=== PATIENT | female | born 1960 | race Caucasian/White ===

== ENCOUNTER 2018-07-05 10:23 | Emergency (ER) | payer BC ==
[2018-07-05 11:03] VITALS: BP 145/77
--- NOTE | 2018-07-05 11:40 | UC ---
Lower Extremity/Ankle HPI - HPI Summary HPI Summary: 57 yo patient with history of HTN who states she jumped down from standing on her countertop last night, injuring her left foot/ankle. she has pain to the top of of her left foot but was able to bear weight after incident, and is able to walk now. Denies any swelling, has not taken any pain medication as she says - History of Current Complaint Chief Complaint: UCLowerExtremity Stated Complaint: ANKLE INJURY Time Seen by Provider: 07/05/18 10:27 Hx Obtained From: Patient ?: No Onset/Duration: Sudden Onset, Lasting Hours Severity Initially: Moderate Severity Currently: Moderate Pain Intensity: 5 Aggravating Factor(s): Standing, Ambulation Alleviating Factor(s): Rest Able to Bear Weight: Yes - Risk Factors Gout Risk Factors: Age Over 40, Hypertension DVT Risk Factors: Negative Septic Arthritis Risk Factor: Negative - Allergies/Home Medications Allergies/Adverse Reactions: Allergies Allergy/AdvReac Type Severity Reaction Status Date / Time ciprofloxacin [From Cipro] AdvReac Intermediate jittery Verified 07/05/18 11:01 levofloxacin [From Levaquin] AdvReac Nausea And Verified 07/05/18 11:01 Vomiting nitrofurantoin AdvReac Nausea And Verified 07/05/18 11:01 Vomiting Home Medications: Home Medications Lisinopril TAB* [Prinivil TAB*] 10 mg PO DAILY 07/05/18 [History Confirmed 07/05] PMH/Surg Hx/FS Hx/Imm Hx Cardiovascular History: Hypertension - Surgical History Surgical History: Yes Surgery Procedure, Year, and Place: , 1992, [facility] - Family History Known Family History: Positive: None - Social History Alcohol Use: Weekly Alcohol Amount: 2 PER WEEK Substance Use Type: None Smoking Status (MU): Former Smoker Type: Cigarettes Amount Used/How Often: 1/2 PACK A WEEK Have You Smoked in the Last Year: No When Did the Patient Quit Smoking/Using Tobacco: 1994 Review of Systems Constitutional: Negative Musculoskeletal: Arthralgia, Myalgia All Other Systems Reviewed And Are Negative: Yes Physical Exam - Summary Physical Exam Summary: Left foot: FROM, capillary refill brisk, pedal pulses present, no edema or soft tissue swelling, no bruising. Hemet ankle rule negative, non tender on navicular, 5th metatarsal or posterior malleolar area. Triage Information Reviewed: Yes Appearance: Well-Appearing, No Pain Distress, Well-Nourished Vital Signs: Initial Vital Signs Temp 97.6 F 07/05/18 10:57 Pulse 57 07/05/18 10:57 Resp 14 07/05/18 10:57 BP 145/77 07/05/18 10:57 Pulse Ox 99 07/05/18 10:57 Vital Signs Reviewed: Yes Eyes: Positive: Conjunctiva Clear ENT: Positive: Hearing grossly normal Neck: Positive: Supple, Nontender, No Lymphadenopathy Respiratory: Positive: Chest non-tender, Lungs clear, Normal breath sounds, No respiratory distress Cardiovascular: Positive: RRR, No Murmur, Pulses Normal, Brisk Capillary Refill Abdomen Description: Positive: Nontender Musculoskeletal: Positive: Strength Intact, ROM Intact, No Edema Lower Extremity Course/Dx - Course Course Of Treatment: patient is able to bear weight and is negative Hemet, with an ankle sprain, instructed about RICE and ROM exercises for ankle, she states she will take NSAIDS over the counter. F/u with primary care in a week - Differential Dx/Diagnosis Provider Diagnoses: Left ankle sprain Discharge - Sign-Out/Discharge Documenting (check all that apply): Patient Departure All imaging exams completed and their final reports reviewed: No Studies - Discharge Plan Condition: Stable Disposition: HOME Patient Education Materials: Ankle Sprain (ED), R.I.C.E. Treatment (ED) Referrals: Sai Isbell MD [Primary Care Provider] - - Billing Disposition and Condition Condition: STABLE Disposition: Home
== END 2018-07-05 11:39 | disposition home or self-care (01) ==
LOC: UCEAST 10:23
DX: S93.402A Sprain of unspecified ligament of left ankle, initial encounter (principal); W17.89XA Other fall from one level to another, initial encounter; Y93.9 Activity, unspecified; Y92.9 Unspecified place or not applicable; I10 Essential (primary) hypertension; Z88.1 Allergy status to other antibiotic agents; Z87.891 Personal history of nicotine dependence
CPT/HCPCS: 99212; G0463

== ENCOUNTER 2019-12-12 09:53 | Emergency (ER) | payer BC ==
[2019-12-12 10:15] VITALS: BP 134/76
--- NOTE | 2019-12-12 10:44 | UC ---
Complaint Female HPI - HPI Summary HPI Summary: 59 year old female with no PMH presents with hematuria, urination frequency/ urgency x 3-4 days. First thought was yeast infection, treated for this without improvement. Last night had bloody urine. Continues to be able to urinate. No recent UTi. no fever, chills. + lower abdominal pain, no flank pain. - History Of Current Complaint Chief Complaint: UCGU Stated Complaint: UTI Time Seen by Provider: 12/12/19 10:26 Hx Obtained From: Patient ?: No Onset/Duration: Sudden Onset, Lasting Days - 3-4, Still Present, Worse Since - last night Timing: Constant Severity Initially: Mild Severity Currently: Mild Pain Intensity: 1 Pain Scale Used: 0-10 Numeric Character: Dull, Burning Aggravating Factor(s): Urination Associated Signs And Symptoms: Negative: Fever, Back Pain, Vaginal Bleeding/ Discharge, Vaginal Discharge, Nausea, Genital Swelling, Genital Blisters - Allergies/Home Medications Allergies/Adverse Reactions: Allergies Allergy/AdvReac Type Severity Reaction Status Date / Time ciprofloxacin [From Cipro] AdvReac Intermediate jittery Verified 12/12/19 10:11 levofloxacin [From Levaquin] AdvReac Nausea And Verified 12/12/19 10:11 Vomiting nitrofurantoin AdvReac Nausea And Verified 12/12/19 10:11 Vomiting Home Medications: Home Medications Lisinopril TAB* [Prinivil TAB 10 MG*] 10 mg PO DAILY 07/05/18 [History Confirmed 12/12/19] Cephalexin CAP* [Keflex CAP*] 500 mg PO QID #20 cap 12/12/19 [Rx] PMH/Surg Hx/FS Hx/Imm Hx Previously Healthy: Yes - Surgical History Surgical History: Yes Surgery Procedure, Year, and Place: , 1992, [facility] - Family History Known Family History: Positive: None - Social History Occupation: Employed Full-time Alcohol Use: Occasionally Alcohol Amount: 2 PER WEEK Substance Use Type: None Smoking Status (MU): Former Smoker Type: Cigarettes Amount Used/How Often: 1/2 PACK A WEEK Have You Smoked in the Last Year: No When Did the Patient Quit Smoking/Using Tobacco: 1994 Review of Systems All Other Systems Reviewed And Are Negative: Yes Constitutional: Negative: Fever, Chills, Fatigue Respiratory: Positive: Negative Genitourinary: Positive: Dysuria, Hematuria, Frequency, Urgency. Negative: Vaginal/Penile Burning, Vaginal/Penile Itching, Vaginal/Penile Discharge, Vaginal/Penile Pain, Vaginal/Penile Tenderness, Ulceration/Lesion, Abnormal Bleeding Motor: Positive: Negative Physical Exam Triage Information Reviewed: Yes Appearance: Well-Appearing, No Pain Distress, Well-Nourished Vital Signs: Initial Vital Signs Temp 99 F 12/12/19 10:12 Pulse 58 12/12/19 10:12 Resp 18 12/12/19 10:12 BP 134/76 12/12/19 10:12 Pulse Ox 100 12/12/19 10:12 Vital Signs Reviewed: Yes Eyes: Positive: Conjunctiva Clear ENT: Positive: Hearing grossly normal Cardiovascular: Positive: RRR, No Murmur Abdomen Description: Positive: Other: - TTP over suprapubic region, no radiating. Negative: CVA Tenderness (R), CVA Tenderness (L), Distended, Guarding, Hepatomegaly, McBurney's Point Tenderness, Peritoneal Signs Neurological: Positive: Alert Psychological Exam: Normal Skin Exam: Normal Complaint Female Dx - Course Course Of Treatment: - Increase fluid intake - Tylenol as needed for pain - Go to ER with fever, flank pain, increased blood in urine, no urination x 6 hours - ANtibiotics as directed - Cultures will return within ~ 48 hours - Differential Dx/Diagnosis Differential Diagnosis/HQI/PQRI: Urinary Tract Infection Provider Diagnosis: UTI (urinary tract infection) Discharge ED - Sign-Out/Discharge Documenting (check all that apply): Patient Departure All imaging exams completed and their final reports reviewed: No Studies - Discharge Plan Condition: Good Disposition: HOME Prescriptions: Cephalexin CAP* [Keflex CAP*] 500 mg PO QID #20 cap Patient Education Materials: Urinary Tract Infection in Women (DC) Referrals: Sai Isbell MD [Primary Care Provider] - Additional Instructions: - Increase fluid intake - Tylenol as needed for pain - Go to ER with fever, flank pain, increased blood in urine, no urination x 6 hours - ANtibiotics as directed - Cultures will return within ~ 48 hours - Billing Disposition and Condition Condition: GOOD Disposition: Home - Attestation Statements Provider Attestation: I was available for consult. This patient was seen by the [facility]. The patient was not presented to , seen by or examined by ok -Halima Jaramillo MD
== END 2019-12-12 11:04 | disposition home or self-care (01) ==
LOC: UCEAST 09:53
DX: N39.0 Urinary tract infection, site not specified (principal); R31.9 Hematuria, unspecified; Z87.891 Personal history of nicotine dependence; Z88.1 Allergy status to other antibiotic agents; Z88.8 Allergy status to other drugs, medicaments and biological substances
CPT/HCPCS: 81003; 87086; 99212; G0463